=== PATIENT | female | born 1975 | race Caucasian/White ===

== ENCOUNTER 2017-02-16 16:12 | Emergency (ER) | payer SELFPAY ==
[~2017-02-16] VITALS: Ht 165.1 cm; Wt 90.7 kg
[2017-02-16 16:20] VITALS: BP 125/69
[2017-02-16] MEDS ORDERED: IBUP600T16 PO (16:52)
[2017-02-16] MEDS ORDERED: IBUPROFEN 600 MG TABLET. PO ONE ×2 (17:00→17:30)
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
== END 2017-02-16 16:58 | disposition home or self-care (01) ==
LOC: ER 16:12
DX: R51 Headache (principal); M79.1 Myalgia; R68.84 Jaw pain; Z88.0 Allergy status to penicillin; Z88.6 Allergy status to analgesic agent; Y08.89XA Assault by other specified means, initial encounter; Y93.89 Activity, other specified; Y99.8 Other external cause status; Y92.008 Other place in unspecified non-institutional (private) residence as the place of occurrence of the external cause
CPT/HCPCS: 99283